=== PATIENT | male | born 1980 | race Hispanic/Latino ===

== ENCOUNTER 2016-11-10 23:13 | Emergency (ER) | payer MEDICARE, OTHER ==
[~2016-11-10] VITALS: Ht 177.8 cm; Wt 106.8 kg
[2016-11-10 23:20] VITALS: BP 169/122; PULSE 118; RESP 16; O2SAT 99
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
[2016-11-10] MEDS ORDERED: Lidocaine 1%/Epi 1:100,000 30 mL MDV ONE (23:41)
[2016-11-11 01:15] VITALS: BP 137/93; PULSE 111; RESP 16
== END 2016-11-11 01:00 | disposition home or self-care (01) ==
LOC: SED 23:13
DX: S01.81XA Laceration without foreign body of other part of head, initial encounter (principal); W39.XXXA Discharge of firework, initial encounter; Y93.89 Activity, other specified; Y99.8 Other external cause status; Y92.017 Garden or yard in single-family (private) house as the place of occurrence of the external cause

== ENCOUNTER 2016-11-20 14:57 | Emergency (ER) | payer OTHER ==
[~2016-11-20] VITALS: Ht 177.8 cm; Wt 106.8 kg
[2016-11-20 16:48] VITALS: BP 153/99; PULSE 101; RESP 16; O2SAT 100
== END 2016-11-20 17:40 | disposition home or self-care (01) ==
LOC: SED 14:57
DX: Z48.02 Encounter for removal of sutures (principal)